=== PATIENT | male | born 1970 | race Caucasian/White ===

== ENCOUNTER 2018-01-27 17:14 | Emergency (ER) | payer OTHER ==
[~2018-01-27] VITALS: Ht 167.6 cm; Wt 77.3 kg
[2018-01-27] MEDS ORDERED: LISI-660 PO (17:21)
[2018-01-27] MEDS ORDERED: INSU100V SQ (17:21)
[2018-01-27] MEDS ORDERED: INSLAN SQ (17:21)
[2018-01-27] MEDS ORDERED: METF500T6 PO (17:21)
[2018-01-27] MEDS ORDERED: METO25 PO (17:21)
[2018-01-27] MEDS ORDERED: [UNRECOGNIZED DRUG - REMARK] (17:21)
[2018-01-27] MEDS ORDERED: GABA-531 PO (17:21)
[2018-01-27 17:28] LABS: GLUCOSE,POINT OF CARE 408 MG/DL (70-110)
[2018-01-27] MEDS: INSULIN REGULAR, HUMAN 100 UNITS/ML SQ ONE (19:37)
[2018-01-27] MEDS: GABAPENTIN 100 MG CAPSULE PO ONE (20:15)
[2018-01-27 20:52] LABS: BASOPHILS % (AUTO) 2.8 % (0.0-2.0); EOSINOPHILS % (AUTO) 5.4 % (1.0-6.0); HEMATOCRIT 33.9 % (41-53); LYMPHOCYTES # (AUTO) 1.4 K/uL (1.0-4.8); MEAN CORPUSCULAR HEMOGLOBIN 22.3 pg (26.0-34.0); MEAN CORPUSCULAR HGB CONC 32.4 G/dL (31.0-37.0); MEAN CORPUSCULAR VOLUME 69 fL (80-100); MONOCYTES # (AUTO) 0.5 K/uL (0.1-1.0); MONOCYTES % (AUTO) 12.1 % (2.0-9.0); NEUTROPHILS # (AUTO) 1.7 K/uL (1.8-7.7); NEUTROPHILS % (AUTO) 44.7 % (40.0-70.0); RED BLOOD CELL COUNT(AUTO) 4.93 MIL/uL (4.50-5.90); RED CELL DISTRIBUTION WIDTH 17.8 % (11.5-14.5)
[2018-01-27 21:01] LABS: ANION GAP 8 mmol/L (8-16); CALCIUM, TOTAL 8.2 mg/dL (8.8-10.5); CARBON DIOXIDE 22 mmol/L (22-29); CHLORIDE 102 mmol/L (98-107); CREATININE 0.95 mg/dL (0.60-1.30); GLOMERULAR FILTR. RATE CALC > 60 mL/min (>60); GLUCOSE,RANDOM 306 mg/dL (70-110); POTASSIUM 3.4 mmol/L (3.5-5.1); SODIUM SERUM 132 mmol/L (136-145); UREA NITROGEN, BLOOD 16 mg/dL (7-18)
[2018-01-27 21:07] LABS: ALANINE AMINOTRANSFERASE 84 U/L (12-78); ALBUMIN 3.1 g/dL (3.4-5.0); ALKALINE PHOSPHATASE 305 U/L (46-116); ASPARTATE AMINOTRANSFERASE 54 U/L (15-37); BILIRUBIN,TOTAL 0.7 mg/dL (0.1-1.0)
[2018-01-27 21:34] LABS: PLATELET COUNT (AUTO) 71 K/uL (150-450)
[2018-01-27] MEDS: POTASSIUM CHLORIDE 10% 40 MEQ/30 ML LIQUID UDCUP PO ONE (21:43)
[2018-01-27 23:02] LABS: GLUCOSE,POINT OF CARE 255 MG/DL (70-110)
[2018-01-27 23:45] VITALS: BP 121/81
== END 2018-01-28 00:08 | disposition home or self-care (01) ==
LOC: EMS 17:16
DX: S80.02XA Contusion of left knee, initial encounter (principal); S80.01XA Contusion of right knee, initial encounter; E11.65 Type 2 diabetes mellitus with hyperglycemia; F10.129 Alcohol abuse with intoxication, unspecified; K70.30 Alcoholic cirrhosis of liver without ascites; E87.6 Hypokalemia; F17.210 Nicotine dependence, cigarettes, uncomplicated; I10 Essential (primary) hypertension; Z79.4 Long term (current) use of insulin; W19.XXXA Unspecified fall, initial encounter; Y93.89 Activity, other specified; Y92.89 Other specified places as the place of occurrence of the external cause; Y99.8 Other external cause status
CPT/HCPCS: 36415; 80053; 82962; 85025; 96372; 99284; 99406; J1815